=== PATIENT | male | born 1960 | race Caucasian/White ===

== ENCOUNTER → 2017-07-03 | Outpatient (CLI) | payer OTHER ==
--- NOTE | 2017-07-03 07:45 | DIAGNOSTIC IMAGING REPORT ---
LEFT SHOULDER MRI HISTORY: Left shoulder pain. Fall. TECHNIQUE: Multiplanar multisequence MRI of the left shoulder was performed without contrast. COMPARISON STUDY: None. FINDINGS: AC joint: Moderate AC joint arthrosis demonstrated by joint space narrowing, marginal osteophytes, and mild subchondral edema. Rotator cuff: Increased signal within the distal supraspinatus tendon consistent with a mild tendinopathy. As also a small amount of fluid at the musculotendinous junction of the subscapularis tendon. This is consistent with a partial tear. No evidence for full-thickness tear within the rotator cuff. The infraspinatus and teres minor tendons appear intact. There is no fluid within the subacromial/subdeltoid bursa. Labrum: Punctate focus of fluid at the base of the superior labrum. This is indeterminate and could be due to a normal foramen or a small SLAP tear. Otherwise, the labrum is intact. Biceps tendon: Intact Bones: No fracture or dislocation. Cartilage: Mild cartilage thinning at the humeral head. Miscellaneous: Best seen on coronal T2 fat-sat images 10-15 there is a small amount of fluid/edema adjacent to the medial side of the proximal shaft of the humerus. This is nonspecific but raises the possibility of an inferior glenohumeral ligament tear. IMPRESSION: 1. There are is a small amount of fluid/edema adjacent to the medial side of the proximal shaft of the humerus. This is nonspecific but raises the possibility of an inferior glenohumeral ligament tear. There is clinical concern for this injury then follow-up arthrogram is recommended for further evaluation. 2. Supraspinatus tendinopathy. No evidence for old thickness rotator cuff tear. 3. Small amount of fluid at the musculotendinous junction of the subscapularis tendon consistent with a partial tear. 4. Punctate focus of fluid at the base of the superior labrum. This is indeterminate and could be due to a normal foramen or a small SLAP tear. Electronically signed by: Kenton Nichols M.D. 07/03/2017 7:43 AM Dictated Date/Time: 07/03/2017 7:33 AM
== END | disposition home or self-care (01) ==
LOC: C.MRI 06:53
PROVIDERS: ATTEND Orthopaedic Surgery Sports Medicine
DX: M25.512 Pain in left shoulder (principal); R60.0 Localized edema; M75.82 Other shoulder lesions, left shoulder